=== PATIENT | male | born 1955 | race Caucasian/White ===

== ENCOUNTER 2018-05-24 18:48 | Observation (INO) | payer OTHER ==
[~2018-05-24] VITALS: Ht 177.8 cm; Wt 90.7 kg
[~2018-05-24 18:48] MED LIST: BENICAR20 MG PO; DOXAZOSIN MESYLA8 MG PO; NORCO 5-325 TA1 EACH
--- OUTSIDE RECORDS SUMMARY | 2018-05-24 18:51 | XMS REPORT | Continuity of Care Document ---
Author Author [facility] [employer] [facility] Interface Address Unknown Phone Unavailable Problems Problem Status Onset Date Classification Date Reported Comments Source Discharge Diagnosis: Chest pain, atypical 09/22/2015 09/25/2015 [facility] CHEST PAINS Active 09/22/2015 [facility] HTN (<span [id number]">Confirmed</span>) Resolved Problem 09/25/2015 [facility] Medications Medication Details Route Status Patient Instructions Ordering Provider Order Date Source Allergies, Adverse Reactions, Alerts Substance Category Reaction Severity Reaction type Status Date Reported Comments Source Immunizations Immunization Date Given Site Status Last Updated Comments Source Results Order Name Results Value Reference Range Date Interpretation Comments Source CARDIAC ENZYMES CK MB Index 1.2 0.0 - 2.5 09/22/2015 [facility] CARDIAC ENZYMES Troponin-I null 0.00 - 0.40 09/22/2015 [facility] CARDIAC ENZYMES CK MB 2.0 ng/mL 0.5 - 3.6 09/22/2015 [facility] CARDIAC ENZYMES Total CK 164 unit/L 12 - 191 09/22/2015 [facility] CHEM PANEL eGFR 76 mL/min/1.73m2 09/22/2015 Result Comment: The eGFR is calculated using the CKD-EPI formula. In most young, healthy individuals the eGFR will be >90 mL/min/1.73m2. The eGFR declines with age. An eGFR of 60-89 may be normal in some populations, particularly the elderly, for whom the CKD-EPI formula has not been extensively validated. Use of the eGFR is not recommended in the following populations: Individuals with unstable creatinine concentrations, including patients and those with serious co-morbid conditions. Patients with extremes in muscle mass or diet. The data above are obtained from the National Kidney Disease Education Program (NKDEP) which additionally recommends that when the eGFR is used in patients with extremes of body mass index for purposes of drug dosing, the eGFR should be multiplied by the estimated BMI. [facility] CHEM PANEL Globulin 3.5 g/dL 2.0 - 4.0 09/22/2015 [facility] CHEM PANEL B/C Ratio 16 6 - 25 09/22/2015 [facility] CHEM PANEL AGAP 11.3 meq/L 10.0 - 20.0 09/22/2015 [facility] CHEM PANEL A/G Ratio 1.1 0.7 - 1.6 09/22/2015 [facility] CHEM PANEL ALT 40 unit/L 0 - 65 09/22/2015 [facility] CHEM PANEL Alk Phos 66 unit/L 39 - 136 09/22/2015 [facility] CHEM PANEL AST 17 unit/L 0 - 37 09/22/2015 [facility] CHEM PANEL Calcium Lvl 8.3 mg/dL 8.5 - 10.5 09/22/2015 [facility] CHEM PANEL Total Protein 7.5 g/dL 6.4 - 8.4 09/22/2015 [facility] CHEM PANEL Albumin Lvl 4.0 g/dL 3.5 - 5.0 09/22/2015 [facility] CHEM PANEL Glucose Lvl 124 mg/dL 70 - 99 09/22/2015 [facility] CHEM PANEL BUN 17 mg/dL 7 - 22 09/22/2015 [facility] CHEM PANEL Sodium Lvl 137 meq/L 135 - 145 09/22/2015 [facility] CHEM PANEL Potassium Lvl 3.3 meq/L 3.5 - 5.1 09/22/2015 [facility] CHEM PANEL Bili Total 0.5 mg/dL 0.2 - 1.3 09/22/2015 [facility] CHEM PANEL Creatinine Lvl 1.06 mg/dL 0.50 - 1.40 09/22/2015 [facility] CHEM PANEL Chloride Lvl 102 meq/L 95 - 109 09/22/2015 [facility] CHEM PANEL CO2 27 meq/L 24 - 32 09/22/2015 [facility] HEMATOLOGY Segs-Bands # 3.7 K/CMM 1.5 - 8.1 09/22/2015 [facility] HEMATOLOGY Basophils 0.9 % 0.0 - 1.0 09/22/2015 [facility] HEMATOLOGY Lymphocytes # 1.5 K/CMM 1.0 - 5.5 09/22/2015 [facility] HEMATOLOGY Monocytes # 0.3 K/CMM 0.0 - 0.8 09/22/2015 [facility] HEMATOLOGY Basophils # 0.1 K/CMM 0.0 - 0.2 09/22/2015 [facility] HEMATOLOGY Monocytes 5.9 % 2.0 - 12.0 09/22/2015 [facility] HEMATOLOGY Eosinophils 0.5 % 0.0 - 4.0 09/22/2015 [facility] HEMATOLOGY Segs 66.3 % 45.0 - 75.0 09/22/2015 [facility] Lymphocytes 26.4 % 20.0 - 40.0 09/22/2015 [facility] HEMATOLOGY INR 1.05 0.85 - 1.17 09/22/2015 [facility] PT 14.0 s 12.0 - 14.7 09/22/2015 [facility] WBC 5.5 K/CMM 3.7 - 10.4 09/22/2015 [facility] RBC 4.81 M/CMM 4.70 - 6.10 09/22/2015 [facility] MCH 30.0 pg 27.0 - 31.0 09/22/2015 [facility] MCV 86.4 fL 80.0 - 94.0 09/22/2015 [facility] Hct 41.6 % 42.0 - 54.0 09/22/2015 [facility] Hgb 14.4 g/dL 14.0 - 18.0 09/22/2015 [facility] MPV 9.5 fL 7.4 - 10.4 09/22/2015 [facility] Platelet 159 K/CMM 133 - 450 09/22/2015 [facility] RDW 13.9 % 11.5 - 14.5 09/22/2015 [facility] MCHC 34.7 g/dL 32.0 - 36.0 09/22/2015 [facility] Chest 2 views DX Chest 2 views DX PA and lateral chest:The aorta is tortuous. The cardiomediastinal silhouette, pulmonary vasculature and bita are within normal limits. The lungs and pleural spaces are clear. There are no significant osseous abnormalities. There is no significant change compared to 01/09/2010. IMPRESSION: No acute radiographic abnormalities in the chest. [id number] 09/22/2015 - - Read by: Cody Allen MD Dictated Date/time: 09/22/15 15:06 Electronically Signed by: Cody Allen MD 09/22/15 15:07 FINAL REPORT [facility] Vital Signs Vital Sign Value Date Comments Source Respitory Rate 18 09/23/2015 [facility] Temperature Oral (F) 98.5 F 09/23/2015 [facility] Heart Rate 79 09/23/2015 [facility] Systolic (mm Hg) 167 09/23/2015 [facility] Diastolic (mm Hg) 74 09/23/2015 [facility] Systolic (mm Hg) 175 09/22/2015 [facility] Diastolic (mm Hg) 108 09/22/2015 [facility] Temperature Oral (F) 98.3 F 09/22/2015 [facility] Heart Rate 71 09/22/2015 [facility] Respitory Rate 20 09/22/2015 [facility] Weight 93.182 09/22/2015 [facility] Height 180.34 cm 09/22/2015 [facility] BMI Calculated 28.65 09/22/2015 [facility] Encounters Location Location Details Encounter Type Encounter Number Reason For Visit Attending Provider ADM Date DC Date Status Source [facility] [id number] [employer] [employer] 09/22/2015 09/23/2015 [facility] Procedures Procedure Code Date Perfomer Comments Source
--- OUTSIDE RECORDS SUMMARY | 2018-05-24 18:51 | XMS REPORT | Summary of Care ---
Author Author Organization Address Unknown Phone Unavailable Encounter DHEERAJ Christensen(FIN) [id number] Date(s): 09/22/15 - 09/22/15 [id number] [place] [address]- Discharge Diagnosis: Chest pain, atypical Discharge Disposition: Home Attending Physician: Yash Lu MD Vital Signs Most recent to 1 2 oldest [Reference Range]: Height 180.34 cm (09/22/15 1:39 PM) Temperature Oral 98.5 DegF 98.3 DegF [96.4-99.1 DegF] (09/22/15 7:12 PM) (09/22/15 1:39 PM) Blood Pressure 167/74 mmHg 175/108 mmHg [90-140/60-90 mmHg] *HI* *HI* (09/22/15 7:12 PM) (09/22/15 1:39 PM) Respiratory Rate 18 BRMIN 20 BRMIN [14-20 BRMIN] (09/22/15 7:12 PM) (09/22/15 1:39 PM) Peripheral Pulse 79 bpm 71 bpm Rate [60-100 bpm] (09/22/15 7:12 PM) (09/22/15 1:39 PM) Weight 93.182 kg (09/22/15 1:39 PM) Body Mass Index 28.65 m2 (09/22/15 1:39 PM) Problem List Condition Effective Dates Status Health Status Informant HTN Resolved (hypertension)(Confi rmed) Allergies, Adverse Reactions, Alerts Substance Reaction Severity Status NKDA Active Medications No data available for this section Results ELECTROLYTES Most recent to 1 oldest [Reference Range]: Sodium Lvl [135-145 137 mEq/L mEq/L] (09/22/15 1:55 PM) Potassium Lvl 3.3 mEq/L [3.5-5.1 mEq/L] *LOW* (09/22/15 1:55 PM) Chloride Lvl [95-109 102 mEq/L mEq/L] (09/22/15 1:55 PM) CO2 [24-32 mEq/L] 27 mEq/L (09/22/15 1:55 PM) AGAP [10.0-20.0 11.3 mEq/L mEq/L] (09/22/15 1:55 PM) CHEM PANEL Most recent to 1 oldest [Reference Range]: Creatinine Lvl 1.06 mg/dL [0.50-1.40 mg/dL] (09/22/15 1:55 PM) eGFR 76 mL/min/1.73m2 1 *NA* (09/22/15 1:55 PM) BUN [7-22 mg/dL] 17 mg/dL (09/22/15 1:55 PM) B/C Ratio [6-25] 16 (09/22/15 1:55 PM) Glucose Lvl [70-99 124 mg/dL mg/dL] *HI* (09/22/15 1:55 PM) Total Protein 7.5 g/dL [6.4-8.4 g/dL] (09/22/15 1:55 PM) Albumin Lvl [3.5-5.0 4.0 g/dL g/dL] (09/22/15 1:55 PM) Globulin [2.0-4.0 3.5 g/dL g/dL] (09/22/15 1:55 PM) A/G Ratio [0.7-1.6] 1.1 (09/22/15 1:55 PM) Calcium Lvl 8.3 mg/dL [8.5-10.5 mg/dL] *LOW* (09/22/15 1:55 PM) ALT [0-65 unit/L] 40 unit/L (09/22/15 1:55 PM) AST [0-37 unit/L] 17 unit/L (09/22/15 1:55 PM) Alk Phos [39-136 66 unit/L unit/L] (09/22/15 1:55 PM) Bili Total [0.2-1.3 0.5 mg/dL mg/dL] (09/22/15 1:55 PM) 1Result Comment: The eGFR is calculated using the [...] from the National Kidney Disease Education Program ( NKDEP) which additionally recommends that when the eGFR is used in patients with extremes of body mass index for purposes of drug dosing, the eGFR should be mul tiplied by the estimated BMI. CARDIAC ENZYMES Most recent to 1 oldest [Reference Range]: Total CK [12-191 164 unit/L unit/L] (09/22/15 1:55 PM) CK MB [0.5-3.6 2.0 ng/mL ng/mL] (09/22/15 1:55 PM) CK MB Index 1.2 [0.0-2.5] (09/22/15 1:55 PM) Troponin-I <0.02 ng/mL [0.00-0.40 ng/mL] (09/22/15 1:55 PM) HEMATOLOGY Most recent to 1 oldest [Reference Range]: WBC [3.7-10.4 K/CMM] 5.5 K/CMM (09/22/15 1:55 PM) RBC [4.70-6.10 4.81 M/CMM M/CMM] (09/22/15 1:55 PM) Hgb [14.0-18.0 g/dL] 14.4 g/dL (09/22/15 1:55 PM) Hct [42.0-54.0 %] 41.6 % *LOW* (09/22/15 1:55 PM) MCV [80.0-94.0 fL] 86.4 fL (09/22/15 1:55 PM) MCH [27.0-31.0 pg] 30.0 pg (09/22/15 1:55 PM) MCHC [32.0-36.0 34.7 g/dL g/dL] (09/22/15 1:55 PM) RDW [11.5-14.5 %] 13.9 % (09/22/15 1:55 PM) Platelet [133-450 159 K/CMM K/CMM] (09/22/15 1:55 PM) MPV [7.4-10.4 fL] 9.5 fL (09/22/15 1:55 PM) Segs [45.0-75.0 %] 66.3 % (09/22/15 1:55 PM) Lymphocytes 26.4 % [20.0-40.0 %] (09/22/15 1:55 PM) Monocytes [2.0-12.0 5.9 % %] (09/22/15 1:55 PM) Eosinophils [0.0-4.0 0.5 % %] (09/22/15 1:55 PM) Basophils [0.0-1.0 0.9 % %] (09/22/15 1:55 PM) Segs-Bands # 3.7 K/CMM [1.5-8.1 K/CMM] (09/22/15 1:55 PM) Lymphocytes # 1.5 K/CMM [1.0-5.5 K/CMM] (09/22/15 1:55 PM) Monocytes # [0.0-0.8 0.3 K/CMM K/CMM] (09/22/15 1:55 PM) Basophils # [0.0-0.2 0.1 K/CMM K/CMM] (09/22/15 1:55 PM) PT [12.0-14.7 14.0 seconds seconds] (09/22/15 1:55 PM) INR [0.85-1.17] 1.05 (09/22/15 1:55 PM) Immunizations No data available for this section Procedures No data available for this section Social History Social History Type Response Smoking Status Never smoker; Exposure to Tobacco Smoke None; Cigarette Smoking Last 365 Days No; Reg Smoking Cessation Counseling No Assessment and Plan No data available for this section
[2018-05-24] MEDS ORDERED: ASPIRIN 81 MG CHEW TAB PO ONE ×2 (19:30→21:45)
--- NOTE | 2018-05-24 19:50 | Diagnostic Imaging Report ---
History: Dizziness, syncope Comparison studies: None Technique: Axial images were obtained from the skull base to the vertex. Coronal and sagittal reconstructions obtained from the axial data. Dose modulation, iterative reconstruction, and/or weight based adjustment of the mA/kV was utilized to reduce the radiation dose to as low as reasonably achievable. Findings: Scalp/skull: No abnormalities. No fractures, blastic or lytic lesions. Extra-axial spaces: No masses. No fluid collections. Brain sulci: Appropriate for age. Ventricles: Normal in size and configuration. No hydrocephalus. Parenchyma: No abnormal densities. No masses, hemorrhage, acute or chronic cortical vascular insults. Sellar/suprasellar region: No abnormalities Craniocervical junction: Patent foramen magnum. No Chiari one malformation. Incidental subtle atherosclerotic calcifications in the carotid siphons. IMPRESSION: No intracranial abnormalities Signed by: Dr. Luis Guzman M.D. on 05/24/2018 7:47 PM
[2018-05-24 19:55] LABS: BASOPHILS % 0.5 % (0.0-1.0); EOSINOPHILS # (AUTO) 0.1 (0.0-0.4); HEMATOCRIT 41.4 % (38.2-49.6); HEMOGLOBIN 14.7 g/dL (14.0-18.0); LYMPHOCYTES # (AUTO) 1.9 (1.0-3.2); LYMPHOCYTES % 34.6 % (18.0-39.1); MEAN CORPUSCULAR HEMOGLOBIN 30.7 pg (28-32); MEAN CORPUSCULAR HGB CONC 35.5 g/dL (31-35); MEAN CORPUSCULAR VOLUME 86.4 fL (81-99); MONOCYTES # (AUTO) 0.5 (0.2-0.8); MONOCYTES % 9.2 % (4.4-11.3); NEUTROPHILS % 53.5 % (38.7-80.0); PLATELET COUNT 180 x10e3/uL (140-360); RED BLOOD COUNT 4.79 x10e6/uL (4.3-5.7); RED CELL DISTRIBUTION WIDTH 12.9 % (11.7-14.4)
--- NOTE | 2018-05-24 19:56 | Diagnostic Imaging Report ---
EXAM: XR CHEST 1 VIEW DATE: 05/24/2018 7:26 PM INDICATION: DISI COMPARISON: None FINDINGS: Lines and Tubes: None Heart and Mediastinum: No acute cardiomediastinal findings. Lungs and Pleura: No significant pleural effusion, pneumothorax, or focal consolidation. Minimal opacities in the lung bases statistically represent atelectasis, however, infectious process could have a similar appearance. Bones and Soft Tissues: No acute findings. IMPRESSION: 1. No acute cardiopulmonary findings. Signed by: Dr. Arnulfo Ruiz MD on 05/24/2018 7:52 PM
[2018-05-24 19:57] LABS: BILIRUBIN,URINE NEGATIVE (NEGATIVE); CLARITY,URINE CLEAR (CLEAR); COLOR,URINE YELLOW (YELLOW); KETONES,URINE NEGATIVE (NEGATIVE); LEUKOCYTE ESTERASE ,URINE NEGATIVE (NEGATIVE); NITRITE,URINE NEGATIVE (NEGATIVE); PROTEIN,URINE DIPSTICK NEGATIVE (NEGATIVE); URINE UROBILINOGEN 0.2 mg/dL (0.2 - 1)
[2018-05-24 20:02] LABS: INR 0.86; PROTHROMBIN TIME 12.5 seconds (11.9-14.5)
[2018-05-24 20:03] LABS: PARTIAL THROMBOPLASTIN TIME 27.1 seconds (23.8-35.5)
[2018-05-24] MEDS ORDERED: TRIBENZOR 40-51 EACH PO (20:07)
[2018-05-24 20:12] LABS: ALANINE AMINOTRANSFERASE 51 IU/L (0-55); ALBUMIN 4.2 g/dL (3.5-5.0); ALBUMIN/GLOBULIN RATIO 1.2 (0.8-2.0); ALKALINE PHOSPHATASE 76 IU/L (40-150); ANION GAP 13.5 mmol/L (8-16); BLOOD UREA NITROGEN 20 mg/dL (7-26); BUN/CREATININE RATIO 18 (6-25); CALCIUM 9.9 mg/dL (8.4-10.2); CARBON DIOXIDE 28 mmol/L (22-29); CHLORIDE 98 mmol/L (98-107); CREATINE KINASE 117 IU/L (30-200); CREATININE, SERUM 1.09 mg/dL (0.72-1.25); EST GLOMERULAR FILTRATION RATE > 60 ML/MIN (60-); GLUCOSE 97 mg/dL (74-118); LIPASE 20 U/L (8-78); POTASSIUM 3.5 mmol/L (3.5-5.1); SODIUM 136 mmol/L (136-145)
[2018-05-24 20:32] LABS: THYROID STIMULATING HORMONE 2.944 uIU/mL (0.350-4.940)
--- OUTSIDE RECORDS SUMMARY | 2018-05-24 21:43 | XMS REPORT ---
Author Author [facility] Address Unknown Phone Unavailable Care Team Providers Care New Accounts Representative Name Role Phone Christianne SALAZAR Unavailable Unavailable Problems This patient has no known problems. Allergies, Adverse Reactions, Alerts This patient has no known allergies or adverse reactions. Medications This patient has no known medications. Results Test Description Test Time Test Comments Text Results Atomic Results Result Comments CHEST SINGLE (PORTABLE) 2018-05-24 19:52:00 [facility] [address] [place] [address] Patient Name: CORY BARAKAT MR #: [id number] : 1955 Age/Sex: 62/M Req #: [id number] Adm Physician: Ordered by: FELICE HALL [employer]EL MANAGER Report #: [id number] Location: ER Room/Bed: Procedure: [id number] DX/CHEST SINGLE (PORTABLE) Exam Date: 05/24/18 Exam Time: 1929 REPORT STATUS: Signed EXAM: XR CHEST 1 VIEW DATE: 05/24/2018 7:26 PM INDICATION: DISI COMPARISON: None FINDINGS: Lines and Tubes: None Heart and Mediastinum: No acute cardiomediastinal findings. Lungs and Pleura: No significant pleural effusion, pneumothorax, or focal consolidation. Minimal opacities in the lung bases statistically represent atelectasis, however, infectious process could have a similar appearance. Bones and Soft Tissues: No acute findings. IMPRESSION: 1. No acute cardiopulmonary findings. Signed by: Dr. Arnulfo Ruiz MD on 05/24/2018 7:52 PM Dictated By: ARNULFO RUIZ MD 51 Transcribed By: CHARISSE on 05/24/181951 COPY TO: FELICE HALL NP CT BRAIN WO 2018-05-24 19:46:00 [place] [address] Patient Name: CORY BARAKAT MR #: [id number] : 1955 Age/Sex: 62/M Req #: [id number] Adm Physician: Ordered by: FELICE HALL NP Report #: [id number] Location: ER Room/Bed: Procedure: [id number] CT/CT BRAIN WO Exam Date: 05/24/18 Exam Time: 1929 REPORT STATUS: Signed History: Dizziness, syncope Comparison studies: None Technique: Axial images were obtained from the skull base to the vertex. Coronal and sagittal reconstructions obtained from the axial data. Dose modulation, iterative reconstruction, and/or weight based adjustment of the mA/kV was utilized to reduce the radiation dose to as low as reasonably achievable. Findings: Scalp/skull: No abnormalities. No fractures, blastic or lytic lesions. Extra-axial spaces: No masses. No fluid collections. Brain sulci: Appropriate for age. Ventricles: Normal in size and configuration. No hydrocephalus. Parenchyma: No abnormal densities. No masses, hemorrhage, acute or chronic cortical vascular insults. Sellar/suprasellar region: No abnormalities Craniocervical junction: Patent foramen magnum. No Chiari one malformation. Incidental subtle atherosclerotic calcifications in the carotid siphons. IMPRESSION: No intracranial abnormalities Signed by: Dr. Luis Guzman M.D. on 05/24/2018 7:47 PM Dictated By: LUIS GUZMAN MD, MD 46 Transcribed By: CHARISSE on 05/24/181946 COPY TO: FELICE HALL NP
[2018-05-24] MEDS ORDERED: SODIUM CHLORIDE FLUSH 10 ML SYR INJ PRN (21:45)
[2018-05-24] MEDS ORDERED: ONDANSETRON HCL INJ 2 MG/ML VIAL IV PRN (21:45)
[2018-05-24 22:23] VITALS: BP 136/83
[2018-05-24 23:01] VITALS: BP 136/83
[2018-05-25 00:35] VITALS: BP 136/83
[2018-05-25 04:00] VITALS: BP 138/82
[2018-05-25 05:46] LABS: BASOPHILS % 0.5 % (0.0-1.0); EOSINOPHILS # (AUTO) 0.2 (0.0-0.4); EOSINOPHILS % 2.5 % (0.0-6.0); HEMATOCRIT 37.7 % (38.2-49.6); HEMOGLOBIN 13.3 g/dL (14.0-18.0); LYMPHOCYTES # (AUTO) 2.2 (1.0-3.2); LYMPHOCYTES % 36.2 % (18.0-39.1); MEAN CORPUSCULAR HEMOGLOBIN 30.4 pg (28-32); MEAN CORPUSCULAR HGB CONC 35.3 g/dL (31-35); MEAN CORPUSCULAR VOLUME 86.3 fL (81-99); MONOCYTES # (AUTO) 0.5 (0.2-0.8); MONOCYTES % 8.6 % (4.4-11.3); NEUTROPHILS # (AUTO) 3.1 (2.1-6.9); PLATELET COUNT 162 x10e3/uL (140-360); RED BLOOD COUNT 4.37 x10e6/uL (4.3-5.7); RED CELL DISTRIBUTION WIDTH 12.8 % (11.7-14.4)
[2018-05-25 06:20] LABS: CREATINE KINASE MB 0.6 ng/mL (0-5.0)
[2018-05-25 06:40] LABS: ALANINE AMINOTRANSFERASE 40 IU/L (0-55); ALBUMIN 3.5 g/dL (3.5-5.0); ALBUMIN/GLOBULIN RATIO 1.2 (0.8-2.0); ALKALINE PHOSPHATASE 59 IU/L (40-150); ANION GAP 10.5 mmol/L (8-16); BLOOD UREA NITROGEN 18 mg/dL (7-26); BUN/CREATININE RATIO 19 (6-25); CARBON DIOXIDE 27 mmol/L (22-29); CHLORIDE 104 mmol/L (98-107); CREATININE, SERUM 0.94 mg/dL (0.72-1.25); EST GLOMERULAR FILTRATION RATE > 60 ML/MIN (60-); GLUCOSE 85 mg/dL (74-118); POTASSIUM 3.5 mmol/L (3.5-5.1); SODIUM 138 mmol/L (136-145)
[2018-05-25 08:31] VITALS: BP 147/88
[2018-05-25] MEDS ORDERED: OLMESARTAN MED PO SCH (09:00)
[2018-05-25] MEDS ORDERED: AMLODIPINE BESYLATE 5 MG TAB PO SCH (09:00)
[2018-05-25] MEDS ORDERED: HYDROCHLOROTHIAZIDE 25 MG TAB PO SCH (09:00)
[2018-05-25] MEDS ORDERED: [UNRECOGNIZED DRUG - OTHER] PO SCH (09:00)
[2018-05-25] MEDS ORDERED: AMLODIPINE PO SCH (09:00)
[2018-05-25] MEDS ORDERED: HCTZ PO SCH (09:00)
[2018-05-25] MEDS ORDERED: OLMESARTAN 20 MG TAB PO SCH (09:00)
--- NOTE | 2018-05-25 15:30 | Cardiology Report ---
DATE OF STUDY: PLEASE VERIFY ORDER NUMBER. ATTENDING PHYSICIAN: Dr. Raman Shanks. DOPPLER SCAN OF CAROTID The left and right carotid arteries were interrogated using the duplex scanning method. The velocities are in the normal range. There is no high-grade stenosis. Vertebral flow appears to be in normal direction bilaterally. CONCLUSIONS 1. No high-grade stenosis or flow impairment bilaterally. 2. Intimal thickening and plaquing bilaterally. Vertebral flow appears to be in normal direction bilaterally. 1. Job#: [id number] ERNIE cc:DR. RAMAN SHANKS
== END 2018-05-25 10:48 | disposition home or self-care (01) ==
LOC: ER 18:48 → ERHOLD 21:40 → MED/SURG 22:27
PROVIDERS: ADMIT Internal Medicine; ATTEND Internal Medicine
DX: R55 Syncope and collapse (principal); I10 Essential (primary) hypertension; N40.0 Benign prostatic hyperplasia without lower urinary tract symptoms; Z87.442 Personal history of urinary calculi; D64.9 Anemia, unspecified
CPT/HCPCS: 36415 ×2; 70450; 71045; 80053 ×2; 81001; 82550 ×2; 82553 ×2; 83690; 84443; 84484 ×2; 85025 ×2; 85610; 85730; 87086; 93005; 93880; 99284; G0378 ×2

== ENCOUNTER 2022-03-20 13:55 | Emergency (ER) | payer OTHER ==
[~2022-03-20] VITALS: Ht 177.8 cm; Wt 90.7 kg
[~2022-03-20 13:55] MED LIST changes: +TRIBENZOR 40-51 EACH PO
== END 2022-03-20 14:30 | disposition home or self-care (01) ==
LOC: ER 14:05
DX: Z01.30 Encounter for examination of blood pressure without abnormal findings (principal); I10 Essential (primary) hypertension; Z87.442 Personal history of urinary calculi
CPT/HCPCS: 99282